=== PATIENT | male | born 1950 | race Two or more races ===

== ENCOUNTER 2017-10-21 10:48 | Outpatient (CLI) | payer OTHER ==
[~2017-10-21 10:48] MED LIST: NEURONTIN300 MG PO; NEURONTIN600 MG PO; URETRON DS1 TAB PO
== END 2017-10-21 10:58 | disposition home or self-care (01) ==
LOC: NUCLEAR 10:48
DX: E04.1 Nontoxic single thyroid nodule (principal)
CPT/HCPCS: 78013; A9512

== ENCOUNTER 2018-01-26 06:53 | Outpatient (CLI) | payer OTHER | END 2018-01-26 06:57 | disposition home or self-care (01) | LOC: SONOGRAMA 06:53 | DX: E04.1 Nontoxic single thyroid nodule (principal) ==

== ENCOUNTER 2018-10-26 08:05 | Outpatient (CLI) | payer OTHER | END 2018-10-26 08:08 | disposition home or self-care (01) | LOC: SONOGRAMA 08:05 | DX: E04.1 Nontoxic single thyroid nodule (principal) ==

== ENCOUNTER 2019-08-26 07:32 | Outpatient (CLI) | payer OTHER | END 2019-08-26 08:05 | disposition home or self-care (01) | LOC: SONOGRAMA 07:32 | DX: E04.1 Nontoxic single thyroid nodule (principal) ==

== ENCOUNTER 2020-06-14 09:28 | Outpatient (CLI) | payer OTHER | END 2020-06-14 09:33 | disposition home or self-care (01) | LOC: SONOGRAMA 09:28 | PROVIDERS: ATTEND Pathology Anatomic Pathology & Clinical Pathology | DX: E04.1 Nontoxic single thyroid nodule (principal) ==

== ENCOUNTER 2022-07-15 06:48 | Emergency (ER) | payer OTHER ==
[~2022-07-15] VITALS: Ht 175.3 cm; Wt 65.8 kg
[2022-07-15] MEDS ORDERED: PROTONIX40 M1 PO (07:24)
[2022-07-15] MEDS ORDERED: LOSARTAN POTASS50 MG PO (07:24)
== END 2022-07-15 11:32 | disposition home or self-care (01) ==
LOC: ER 06:48
DX: I10 Essential (primary) hypertension (principal); Z88.0 Allergy status to penicillin; Z88.6 Allergy status to analgesic agent; Z91.018 Allergy to other foods; F41.9 Anxiety disorder, unspecified